=== PATIENT | male | born 1995 | race Caucasian/White ===

== ENCOUNTER 2016-11-08 15:26 | Emergency (ER) | payer SELFPAY ==
--- NOTE | 2016-11-08 16:46 | ER Document Report ---
HPI - HPI Patient complains to provider of: cut 2 fingers on his right hand Onset: This afternoon - Earlier this afternoon Onset/Duration: Sudden Pain Level: 3 Context: 21-year-old male cut his second and third [place] fingertips on sheet metal today several hours ago. Tetanus not current. Has numbness to the tip of the 3rd finger. Associated Symptoms: None Exacerbated by: Movement Relieved by: Denies Similar symptoms previously: No Recently seen / treated by doctor: No - ROS ROS below otherwise negative: Yes Systems Reviewed and Negative: Yes All other systems reviewed and negative - DERM Skin Color: Normal Past Medical History - General Information source: Patient - Social History Smoking Status: Current Every Day Smoker Frequency of alcohol use: None Drug Abuse: None Lives with: Spouse/Significant other Family History: Reviewed & Not Pertinent Patient has suicidal ideation: No Patient has homicidal ideation: No - Medical History Medical History: Negative Notes: Tetanus less than 5 years ago Renal/ Medical History: Denies: Hx Peritoneal Dialysis Surgical Hx: Negative Vertical Provider Document - CONSTITUTIONAL Agree With Documented VS: Yes Exam Limitations: No Limitations - INFECTION CONTROL TRAVEL OUTSIDE OF THE [place] IN LAST 30 DAYS: No - HEENT HEENT: Normocephalic - NECK Neck: Supple - RESPIRATORY O2 Sat by Pulse Oximetry: 98 - MUSCULOSKELETAL/EXTREMETIES Musculoskeletal/Extremeties: MAEW, FROM, Tender - both lacerations are tender, the 2nd finger is superficial flap, just layers of skin, no fascia, the 3thd finger he can feel sensation but it is dulled distal to the cut. FROM, tendon function 3rd finger intact - NEURO Level of Consciousness: Awake, Alert - DERM Integumentary: Laceration - 1.25 cm full-thickness laceration distal palmar phalanx right third finger . less than 1 cm flap cut distal palmar second digit of the right hand Course - Vital Signs Vital signs: Temp Pulse Resp BP Pulse Ox 98.1 F 84 16 141/73 H 98 11/08/16 15:50 11/08/16 15:50 11/08/16 15:50 11/08/16 15:50 11/08/16 15:50 Procedures - Laceration/Wound Repair Right Finger Time completed: 19:05 Wound length (cm): 1.5 - 3rd right digit [place] middle phalanx Wound's Depth, Shape: Linear Laceration pre-procedure: Sterile drapes applied, Other - surgiscrub Anesthetic type: 1% Lidocaine Volume Anesthetic (mLs): 4 - 3rd finger digital block Wound explored: Contaminated - with metal shaving dots, scrubbed extensively and irrigated out Irrigated w/ Saline (mLs): 100 Wound Repaired With: Sutures Suture Size/Type: 4:0, Prolene Number of Sutures: 3 Layer Closure?: No Post-procedure NV exam normal: No - digital block used Complications: No Notes: 11/08/16 19:08 the 2nd finger superficial flap cut, local 1% lidocaine, lifted flap up scrubbed , irrigated. bacitracin dressing. the 3rd finger was explored to base of wound, no deeper than the subcutaneous tissue no the tendon. 11/09/16 12:26 Discharge - Discharge Clinical Impression: right third finger laceration repair Condition: Good Disposition: HOME, SELF-CARE Instructions: Hand Laceration ([facility]), Acetaminophen, Use of [id number] Ibuprofen ([facility]) Additional Instructions: Deep fingers clean and dry and covered Sutures out in 9 days reTurn to the emergency room any concerns Please complete the patient satisfaction survey if you get one, and return it.. If you do not receive a survey, then you can go to the [facility] website, [email or web address] and place your comments about your very good care. Thank you very much. It was a pleasure being your medical provider today. Forms: Return to Work
[2016-11-08] MEDS ORDERED: LIDOCAINE 1% INJ-PF (10 MG/ML) 30 ML SDV INJ ONE (17:09)
[2016-11-08] MEDS ORDERED: DIPH/PERTUSS(ACELL)/TETANUS VAC/PF 0.5 ML SYR (>=10YO) IM ONE ×2 (17:10→17:47)
[2016-11-08 19:26] VITALS: BP 149/81
== END 2016-11-08 19:23 | disposition home or self-care (01) ==
LOC: ER 15:26
PROC: 0HQFXZZ Repair Right Hand Skin, External Approach (ICD-10-PCS; principal; 2016-11-08)
DX: S61.210A Laceration without foreign body of right index finger without damage to nail, initial encounter (principal); S61.212A Laceration without foreign body of right middle finger without damage to nail, initial encounter; W45.8XXA Other foreign body or object entering through skin, initial encounter; Y93.89 Activity, other specified; F17.200 Nicotine dependence, unspecified, uncomplicated; R20.2 Paresthesia of skin
CPT/HCPCS: 12001; 99283; 90471; 90715; J3490